=== PATIENT | male | born 1990 | race Caucasian/White ===

== ENCOUNTER 2016-10-29 13:03 | Emergency (ER) | payer SELFPAY ==
[2016-10-29 14:44] LABS: EOS % 4.7 % (0.0-3.0); LYMPH % 21.4 % (24.0-44.0); MEAN CORPUSCULAR HEMOGLOBIN 30.1 pg (27.0-33.0); MEAN CORPUSCULAR VOLUME 88.4 fl (80.0-96.0); MONO % 6.3 % (0.0-5.0); NEUTROPHILS % 65.3 % (36.0-66.0); PLATELET COUNT, AUTOMATED 168 k/mm3 (150-450); RED CELL DISTRIBUTION WIDTH 14.5 % (11.5-14.5); WHITE BLOOD COUNT 7.7 K/mm3 (4.0-10.0)
[2016-10-29 14:45] LABS: BASO % 0.5 % (0.0-1.0); DIFF SLIDE NUMBER 236; EOS # 0.4 K/mm3 (0.0-0.50); LARGE UNSTAINED CELL # 0.1 K/mm3 (0.0-0.4); LARGE UNSTAINED CELL % 1.8 % (0.0-4.0); LYMPH # 1.6 K/mm3 (1.5-6.5); MONO # 0.5 K/mm3 (0.0-0.8)
[2016-10-29 15:09] LABS: ANION GAP 6 MEQ/L (8-16); BLOOD UREA NITROGEN 14 MG/DL (7-18); CALCIUM LEVEL 8.9 MG/DL (8.5-10.1); CARBON DIOXIDE LEVEL 29 MEQ/L (21-32); CHLORIDE LEVEL 105 MEQ/L (98-107); GLOMERULAR FILTRATION RATE > 60.0 (>60); GLUCOSE, FASTING 88 MG/DL (70-105); POTASSIUM SERUM 4.5 MEQ/L (3.5-5.1); SODIUM LEVEL 140 MEQ/L (136-145)
[2016-10-29 15:17] LABS: ERYTHROCYTE SEDIMENTATION RATE 6 mm/hr (0-15)
--- NOTE | 2016-10-29 15:43 | EDDOCDS ---
Nurse's Notes [facility] Name: Stanley Lau Age: 25 yrs Sex: Male : 1990 Arrival Date: 10/29/2016 Time: 13:03 Bed TR1 Private MD: NO PRIMARY PHYSICIAN, . Diagnosis: Edema, unspecified Presentation: 10/29 13:07 Presenting complaint: Patient states: pt c/o bilateral lower leg swelling, intermittent ead over the past two weeks. Adult Sepsis Screening: The patient does not have new or worsening altered mentation. Patient's respiratory rate is less than 22. Systolic blood pressure is greater than 100. Patient has a qSOFA score of 0- Negative Sepsis Screen. Suicide/Homicide risk assessment- the patient denies having any suicidal and/or homicidal ideations and does not present with any other emotional, behavioral or mental health complaints. Status: Patient is not a sales representative electric service or dependent. Transition of care: patient was not received from another setting of care. 13:07 Acuity: MILY Level 3 ead 13:07 Method Of Arrival: Walkin/Carried/Asstd ead Triage Assessment: 13:09 General: Appears in no apparent distress, comfortable, well nourished, well groomed, ead Behavior is appropriate for age, cooperative. Pain: Location: right leg and left leg Pain currently is 6 out of 10 on a pain scale. Neurological: No deficits noted. Respiratory: Airway is patent Respiratory effort is even, unlabored. Derm: Skin is pink, warm & dry. pt reports intermittent swelling to bilateral lower extremeties. Musculoskeletal: Reports pain in right leg and left leg. 13:12 Pt Declines HIV testing. ead Historical: - Allergies: no known allergies; - Home Meds: 1. none - PMHx: none; - PSHx: left wrist; right ankle; - Social history: Smoking status: Patient uses tobacco products, current some day smoker. No barriers to communication noted, The patient speaks fluent Divehi, Speaks appropriately for age. - Family history: Not pertinent. - : The pt / caregiver states he / she is not on anticoagulants. Home medication list is obtained from the patient. - Exposure Risk Screening:: None identified. Screenin:30 Screening information is obtained from the patient. Fall risk: No risks identified. [facility] Assistance ADL's: requires no assistance with activities of daily living. Abuse/DV Screen: The patient / caregiver reports he/she is: not in a situation that causes fear, pain or injury. Nutritional screening: No deficits noted. Advance Directives: Currently, there is no health care proxy. There is no active DNR order. There is no living will. There is no Power of [place]ly Rol[place]. Advance directive information has not previously been placed in an [facility] medical record. Further advance directive information is declined. home support is adequate. Assessment: 14:30 General: Appears in no apparent distress, well nourished, well groomed, Behavior is kpj appropriate for age. Pain: Denies pain. Neurological: Level of Consciousness is awake, alert. Respiratory: Airway is patent Respiratory effort is even, unlabored, Respiratory pattern is regular, symmetrical. Derm: Skin is pink, warm & dry. Musculoskeletal: Circulation, motion, and sensation intact Capillary refill < 3 seconds in bilateral toes Swelling absent. 15:00 General: pt unable to be found from transit when called for xray. pt's phone number on ead record called by charge nurse with no answer. . 15:13 General: pt still has not returned to waiting area, attempted phone contact without kpj success.. 15:39 General: Pt not found in waiting area, pt eloped provider notified.Pt left AMA.. kpj Vital Signs: 13:04 BP 117 / 73; Pulse 96; Resp 16; Temp 98.0(O); Pulse Ox 99% on R/A; Weight 79.38 kg (R); lr2 Height 6 ft. 1 in. (185.42 cm) (R); Pain 6/10; 13:04 Body Mass Index 23.09 (79.38 kg, 185.42 cm) lr2 Vitals: 13:04 Log In Time: October 29, 2016 at 13:03. lr2 ED Course: 13:04 Patient visited by Venus Valdez. lr2 13:04 Patient moved to Waiting lr2 13:06 NO PRIMARY PHYSICIAN, . is Private Physician. lr2 13:06 Patient moved to Pre RCE lr2 13:08 Triage Initiated ead 13:16 Patient moved to Triage 2 dsf 14:09 Herberth Lopez PA-C is PHCP. cc10 14:09 John Jimenez MD is Attending Physician. cc10 14:09 Patient visited by Herberth Lopez PA-C. cc10 14:09 Patient visited by Herberth Lopez PA-C. cc10 14:30 No apparent distress. kpj 14:30 The patient / caregiver is instructed regarding the plan of care and ED course. Patient j has correct armband on for positive identification. 14:30 No IV's were initiated during this patient's visit. No procedures done that require [facility] assistance. 14:31 Patient moved to TR1 ar3 14:31 CRP Sent. ar3 14:31 ESR Sent. ar3 14:31 BMP Sent. ar3 14:31 CBC with Diff Sent. ar3 14:39 Patient name changed from Stanley\S\\S\Lau\S\ to Stanley\S\Reza\S\Lau. EDMS 14:41 ON LICENSE OF [facility] Payment Agreement was scanned into [employer] and attached to record. lg Order Results: Lab Order: CBC with Diff; SPEC'M 10/29/16 14:31 Test: WHITE BLOOD COUNT; Value: 7.7; Range: 4.0-10.0; Units: K/mm3; Status: F Test: RED BLOOD COUNT; Value: 4.96; Range: 4.30-6.10; Units: M/mm3; Status: F Test: HEMOGLOBIN; Value: 14.9; Range: 14.0-18.0; Units: g/dl; Status: F Test: HEMATOCRIT; Value: 43.8; Range: 42.0-52.0; Units: %; Status: F Test: MEAN CORPUSCULAR VOLUME; Value: 88.4; Range: 80.0-96.0; Units: fl; Status: F Test: MEAN CORPUSCULAR HEMOGLOBIN; Value: 30.1; Range: 27.0-33.0; Units: pg; Status: F Test: MEAN CORPUSCULAR HGB CONC; Value: 34.0; Range: 32.0-36.5; Units: g/dl; Status: F Test: RED CELL DISTRIBUTION WIDTH; Value: 14.5; Range: 11.5-14.5; Units: %; Status: F Test: PLATELET COUNT, AUTOMATED; Value: 168; Range: 150-450; Units: k/mm3; Status: F Test: NEUTROPHILS %; Value: 65.3; Range: 36.0-66.0; Units: %; Status: F Test: LYMPH %; Value: 21.4; Range: 24.0-44.0; Abnormal: Below low normal; Units: %; Status: F Test: MONO %; Value: 6.3; Range: 0.0-5.0; Abnormal: Above high normal; Units: %; Status: F Test: EOS %; Value: 4.7; Range: 0.0-3.0; Abnormal: Above high normal; Units: %; Status: F Test: BASO %; Value: 0.5; Range: 0.0-1.0; Units: %; Status: F Test: LARGE UNSTAINED CELL %; Value: 1.8; Range: 0.0-4.0; Units: %; Status: F Test: NEUTROPHILS #; Value: 5.0; Range: 1.8-7.7; Units: K/mm3; Status: F Test: LYMPH #; Value: 1.6; Range: 1.5-6.5; Units: K/mm3; Status: F Test: MONO #; Value: 0.5; Range: 0.0-0.8; Units: K/mm3; Status: F Test: EOS #; Value: 0.4; Range: 0.0-0.50; Units: K/mm3; Status: F Test: BASO #; Value: 0.0; Range: 0.0-0.2; Units: K/mm3; Status: F Test: LARGE UNSTAINED CELL #; Value: 0.1; Range: 0.0-0.4; Units: K/mm3; Status: F Lab Order: [facility]; SPEC'M 10/29/16 14:31 Test: GLUCOSE, FASTING; Value: 88; Range: 70-105; Units: MG/DL; Status: F Test: BLOOD UREA NITROGEN; Value: 14; Range: 7-18; Units: MG/DL; Status: F Test: CREATININE FOR GFR; Value: 0.90; Range: 0.70-1.30; Units: MG/DL; Status: F Test: GLOMERULAR FILTRATION RATE; Value: > 60.0; Range: >60; Status: F Test: SODIUM LEVEL; Value: 140; Range: 136-145; Units: MEQ/L; Status: F Test: POTASSIUM SERUM; Value: 4.5; Range: 3.5-5.1; Units: MEQ/L; Status: F Test: CHLORIDE LEVEL; Value: 105; Range: 98-107; Units: MEQ/L; Status: F Test: CARBON DIOXIDE LEVEL; Value: 29; Range: 21-32; Units: MEQ/L; Status: F Test: ANION GAP; Value: 6; Range: 8-16; Abnormal: Below low normal; Units: MEQ/L; Status: F Test: CALCIUM LEVEL; Value: 8.9; Range: 8.5-10.1; Units: MG/DL; Status: F Test Note: ; Units are mL/min/1.73 m2 Chronic Kidney Disease Staging per NKF: Stage I & II GFR >=60 Normal to Mildly Decreased Stage III GFR 30-59 Moderately Decreased Stage IV GFR 15-29 Severely Decreased Stage V GFR <15 Very Little GFR Left ESRD GFR <15 on USED [employer] ATTENDANT Lab Order: ESR; SPEC'M 10/29/16 14:31 Test: ERYTHROCYTE SEDIMENTATION RATE; Value: 6; Range: 0-15; Units: mm/hr; Status: F Lab Order: CRP; SPEC'M 10/29/16 14:31 Test: C REACTIVE PROTEIN QUANTITATIV; Value: < 0.30; Range: 0.00-0.30; Units: MG/DL; Status: F Outcome: 15:33 Patient left against medical advice. cc10 15:41 Discharge Assessment: Patient awake, alert and oriented x 3. No cognitive and/or [facility] functional deficits noted. Patient verbalized understanding of disposition instructions. patient administered narcotics - no. The following High Risk Discharge criteria are identified: Yes, Pt left AMA. The patient is leaving AMA: Left before signing form, Notification of AMA status is made to the charge nurse, the adoption social worker, the ED attending physician. 15:42 Patient left the ED. [facility] Signatures: Dispatcher [employer] Lashell Bowen RN RN Rachelle Moore, Reg Reg lg Vi Alvarado, HVAC MECHANIC HVAC MECHANIC ar3 Cindy Mckenzie RN RN dsf Dunaway, Emily, RN RN Herberth Mart, PA-C PA-C cc10 Venus Valdez lr2 Corrections: (The following items were deleted from the chart) 15:05 15:04 General: pt unable to be found when called for xray. pt's cell phone number on dsf record called by charge nurse with no answer.. dsf MTDD
--- NOTE | 2016-10-29 15:43 | EDDOCDS ---
Physician Documentation [facility] Name: Stanley Lau Age: 25 yrs Sex: Male : 1990 Arrival Date: 10/29/2016 Time: 13:03 Bed TR1 Private MD: NO PRIMARY PHYSICIAN, . Disposition: 10/29/16 15:33 Patient has left against medical advice. Impression: Edema, unspecified. - Patients states they are going to Home/Self Care. - Condition is Unknown. - Discharge Instructions: Edema. Medication Reconciliation form. Follow up: Private Physician; When: Call to arrange an appointment; Reason: Wound/Symptom Recheck, Recheck today's complaints, Worsening of conditions, Continuance of care. - Problem is an ongoing problem. - Symptoms are resolved. Historical: - Allergies: no known allergies; - Home Meds: 1. none - PMHx: none; - PSHx: left wrist; right ankle; - Social history: Smoking status: Patient uses tobacco products, current some day smoker. No barriers to communication noted, The patient speaks fluent Romanian, Speaks appropriately for age. - Family history: Not pertinent. - : The pt / caregiver states he / she is not on anticoagulants. Home medication list is obtained from the patient. - Exposure Risk Screening:: None identified. Vital Signs: 10/29 13:04 BP 117 / 73; Pulse 96; Resp 16; Temp 98.0(O); Pulse Ox 99% on R/A; Weight 79.38 kg / lr2 175 lbs (R); Height 6 ft. 1 in. (185.42 cm) (R); Pain 6/10; 13:04 Body Mass Index 23.09 (79.38 kg, 185.42 cm) lr2 MDM: 14:22 Financial registration complete. lg 14:26 CBC with Diff Ordered. EDMS 14:26 BMP Ordered. EDMS 14:27 ESR Ordered. EDMS 14:27 CRP Ordered. EDMS 14:27 Foot, Complete Ordered. EDMS 14:41 [facility] Payment Agreement was scanned into [employer] and attached to record. lg 15:12 CBC with Diff Reviewed. cc10 15:12 BMP Reviewed. cc10 15:12 CRP Reviewed. cc10 15:34 CBC with Diff Reviewed. cc10 15:34 ESR Reviewed. cc10 Signatures: Dispatcher [employer] EDMS Jobson, Lashell, RN RN Rachelle Mcginnis, Reg Reg lg Ene GarciaRN RN Herberth Mart, LUIS MIGUEL PAGrayson cc10 The chart was reviewed and I authenticate all verbal orders and agree with the evaluation and treatment provided.Attachments: 14:41 [facility] Payment Agreement lg MTDD
--- NOTE | 2016-10-31 16:43 | EDDOCDS ---
Physician Documentation [facility] Name: Stanley Lau Age: 25 yrs Sex: Male : 1990 Arrival Date: 10/29/2016 Time: 13:03 Bed TR1 Private MD: NO PRIMARY PHYSICIAN, . Disposition: 10/29/16 15:33 Patient has left against medical advice. Impression: Edema, unspecified. - Patients states they are going to Home/Self Care. - Condition is Unknown. - Discharge Instructions: Edema. Medication Reconciliation form. Follow up: Private Physician; When: Call to arrange an appointment; Reason: Wound/Symptom Recheck, Recheck today's complaints, Worsening of conditions, Continuance of care. - Problem is an ongoing problem. - Symptoms are resolved. Historical: - Allergies: no known allergies; - Home Meds: 1. none - PMHx: none; - PSHx: left wrist; right ankle; - Social history: Smoking status: Patient uses tobacco products, current some day smoker. No barriers to communication noted, The patient speaks fluent Romanian, Speaks appropriately for age. - Family history: Not pertinent. - : The pt / caregiver states he / she is not on anticoagulants. Home medication list is obtained from the patient. - Exposure Risk Screening:: None identified. Vital Signs: 10/29 13:04 BP 117 / 73; Pulse 96; Resp 16; Temp 98.0(O); Pulse Ox 99% on R/A; Weight 79.38 kg / lr2 175 lbs (R); Height 6 ft. 1 in. (185.42 cm) (R); Pain 6/10; 13:04 Body Mass Index 23.09 (79.38 kg, 185.42 cm) lr2 MDM: 14:22 Financial registration complete. lg 14:26 CBC with Diff Ordered. EDMS 14:26 BMP Ordered. EDMS 14:27 ESR Ordered. EDMS 14:27 CRP Ordered. EDMS 14:27 Foot, Complete Ordered. EDMS 14:41 [facility] Payment Agreement was scanned into [employer] and attached to record. lg 15:12 CBC with Diff Reviewed. cc10 15:12 BMP Reviewed. cc10 15:12 CRP Reviewed. cc10 15:34 CBC with Diff Reviewed. cc10 15:34 ESR Reviewed. cc10 Signatures: Dispatcher [employer] EDMS Jobson, Lashell, RN RN Rachelle Mcginnis, Reg Reg lg Ene GarciaRN RN Herberth Mart, LUIS MIGUEL PAGrayson cc10 The chart was reviewed and I authenticate all verbal orders and agree with the evaluation and treatment provided.Attachments: 14:41 [facility] Payment Agreement lg Chart Complete MTDD
--- NOTE | 2016-10-31 16:44 | EDDOCDS ---
Nurse's Notes [facility] Name: Stanley Lau Age: 25 yrs Sex: Male : 1990 Arrival Date: 10/29/2016 Time: 13:03 Bed TR1 Private MD: NO PRIMARY PHYSICIAN, . Diagnosis: Edema, unspecified Presentation: 10/29 13:07 Presenting complaint: Patient states: pt c/o bilateral lower leg swelling, intermittent ead over the past two weeks. Adult Sepsis Screening: The patient does not have new or worsening altered mentation. Patient's respiratory rate is less than 22. Systolic blood pressure is greater than 100. Patient has a qSOFA score of 0- Negative Sepsis Screen. Suicide/Homicide risk assessment- the patient denies having any suicidal and/or homicidal ideations and does not present with any other emotional, behavioral or mental health complaints. Status: Patient is not a janitorial services supervisor or dependent. Transition of care: patient was not received from another setting of care. 13:07 Acuity: MILY Level 3 ead 13:07 Method Of Arrival: Walkin/Carried/Asstd ead Triage Assessment: 13:09 General: Appears in no apparent distress, comfortable, well nourished, well groomed, ead Behavior is appropriate for age, cooperative. Pain: Location: right leg and left leg Pain currently is 6 out of 10 on a pain scale. Neurological: No deficits noted. Respiratory: Airway is patent Respiratory effort is even, unlabored. Derm: Skin is pink, warm & dry. pt reports intermittent swelling to bilateral lower extremeties. Musculoskeletal: Reports pain in right leg and left leg. 13:12 Pt Declines HIV testing. ead Historical: - Allergies: no known allergies; - Home Meds: 1. none - PMHx: none; - PSHx: left wrist; right ankle; - Social history: Smoking status: Patient uses tobacco products, current some day smoker. No barriers to communication noted, The patient speaks fluent Wolof, Speaks appropriately for age. - Family history: Not pertinent. - : The pt / caregiver states he / she is not on anticoagulants. Home medication list is obtained from the patient. - Exposure Risk Screening:: None identified. Screenin:30 Screening information is obtained from the patient. Fall risk: No risks identified. [facility] Assistance ADL's: requires no assistance with activities of daily living. Abuse/DV Screen: The patient / caregiver reports he/she is: not in a situation that causes fear, pain or injury. Nutritional screening: No deficits noted. Advance Directives: Currently, there is no health care proxy. There is no active DNR order. There is no living will. There is no Power of Product Grader. Advance directive information has not previously been placed in an [facility] medical record. Further advance directive information is declined. home support is adequate. Assessment: 14:30 General: Appears in no apparent distress, well nourished, well groomed, Behavior is kpj appropriate for age. Pain: Denies pain. Neurological: Level of Consciousness is awake, alert. Respiratory: Airway is patent Respiratory effort is even, unlabored, Respiratory pattern is regular, symmetrical. Derm: Skin is pink, warm & dry. Musculoskeletal: Circulation, motion, and sensation intact Capillary refill < 3 seconds in bilateral toes Swelling absent. 15:00 General: pt unable to be found from transit when called for xray. pt's phone number on ead record called by charge nurse with no answer. . 15:13 General: pt still has not returned to waiting area, attempted phone contact without [facility] success.. 15:39 General: Pt not found in waiting area, pt eloped provider notified.Pt left AMA.. [facility] Social Work Consult: 15:43 LWBS/AMA AMA: Patient is refusing further stabilizing treatment at [facility], although rb offered treatment regardless of method of payment or ability to pay. Patient is aware that this action is being undertaken against the advice of the medical staff at [facility]. Pt. has capacity to understand the potential consequences of this choice. pt did not notify ED staff. Patient / Guardian did not sign a Refusal of Services form. Pt left before being seen by PSA. Vital Signs: 13:04 BP 117 / 73; Pulse 96; Resp 16; Temp 98.0(O); Pulse Ox 99% on R/A; Weight 79.38 kg (R); lr2 Height 6 ft. 1 in. (185.42 cm) (R); Pain 6/10; 13:04 Body Mass Index 23.09 (79.38 kg, 185.42 cm) lr2 Vitals: 13:04 Log In Time: October 29, 2016 at 13:03. lr2 ED Course: 13:04 Patient visited by Venus Valdez. lr2 13:04 Patient moved to Waiting lr2 13:06 NO PRIMARY PHYSICIAN, . is Private Physician. lr2 13:06 Patient moved to Pre RCE lr2 13:08 Triage Initiated ead 13:16 Patient moved to Triage 2 dsf 14:09 Herberth Lopez PA-C is PHCP. cc10 14:09 John Jimenez MD is Attending Physician. cc10 14:09 Patient visited by Herberth Lopez PA-C. cc10 14:09 Patient visited by Herberth Lopez PA-C. cc10 14:30 No apparent distress. kpj 14:30 The patient / caregiver is instructed regarding the plan of care and ED course. Patient kpj has correct armband on for positive identification. 14:30 No IV's were initiated during this patient's visit. No procedures done that require kpj assistance. 14:31 Patient moved to TR1 ar3 14:31 CRP Sent. ar3 14:31 ESR Sent. ar3 14:31 BMP Sent. ar3 14:31 CBC with Diff Sent. ar3 14:39 Patient name changed from Stanley\S\\S\Lau\S\ to Stanley\S\Reza\S\Lau. EDMS 14:41 [facility] Payment Agreement was scanned into [employer] and attached to record. lg Order Results: Lab Order: CBC with Diff; SPEC'M 10/29/16 14:31 Test: WHITE BLOOD COUNT; Value: 7.7; Range: 4.0-10.0; Units: K/mm3; Status: F Test: RED BLOOD COUNT; Value: 4.96; Range: 4.30-6.10; Units: M/mm3; Status: F Test: HEMOGLOBIN; Value: 14.9; Range: 14.0-18.0; Units: g/dl; Status: F Test: HEMATOCRIT; Value: 43.8; Range: 42.0-52.0; Units: %; Status: F Test: MEAN CORPUSCULAR VOLUME; Value: 88.4; Range: 80.0-96.0; Units: fl; Status: F Test: MEAN CORPUSCULAR HEMOGLOBIN; Value: 30.1; Range: 27.0-33.0; Units: pg; Status: F Test: MEAN CORPUSCULAR HGB CONC; Value: 34.0; Range: 32.0-36.5; Units: g/dl; Status: F Test: RED CELL DISTRIBUTION WIDTH; Value: 14.5; Range: 11.5-14.5; Units: %; Status: F Test: PLATELET COUNT, AUTOMATED; Value: 168; Range: 150-450; Units: k/mm3; Status: F Test: NEUTROPHILS %; Value: 65.3; Range: 36.0-66.0; Units: %; Status: F Test: LYMPH %; Value: 21.4; Range: 24.0-44.0; Abnormal: Below low normal; Units: %; Status: F Test: MONO %; Value: 6.3; Range: 0.0-5.0; Abnormal: Above high normal; Units: %; Status: F Test: EOS %; Value: 4.7; Range: 0.0-3.0; Abnormal: Above high normal; Units: %; Status: F Test: BASO %; Value: 0.5; Range: 0.0-1.0; Units: %; Status: F Test: LARGE UNSTAINED CELL %; Value: 1.8; Range: 0.0-4.0; Units: %; Status: F Test: NEUTROPHILS #; Value: 5.0; Range: 1.8-7.7; Units: K/mm3; Status: F Test: LYMPH #; Value: 1.6; Range: 1.5-6.5; Units: K/mm3; Status: F Test: MONO #; Value: 0.5; Range: 0.0-0.8; Units: K/mm3; Status: F Test: EOS #; Value: 0.4; Range: 0.0-0.50; Units: K/mm3; Status: F Test: BASO #; Value: 0.0; Range: 0.0-0.2; Units: K/mm3; Status: F Test: LARGE UNSTAINED CELL #; Value: 0.1; Range: 0.0-0.4; Units: K/mm3; Status: F Lab Order: [facility]; SPEC'M 10/29/16 14:31 Test: GLUCOSE, FASTING; Value: 88; Range: 70-105; Units: MG/DL; Status: F Test: BLOOD UREA NITROGEN; Value: 14; Range: 7-18; Units: MG/DL; Status: F Test: CREATININE FOR GFR; Value: 0.90; Range: 0.70-1.30; Units: MG/DL; Status: F Test: GLOMERULAR FILTRATION RATE; Value: > 60.0; Range: >60; Status: F Test: SODIUM LEVEL; Value: 140; Range: 136-145; Units: MEQ/L; Status: F Test: POTASSIUM SERUM; Value: 4.5; Range: 3.5-5.1; Units: MEQ/L; Status: F Test: CHLORIDE LEVEL; Value: 105; Range: 98-107; Units: MEQ/L; Status: F Test: CARBON DIOXIDE LEVEL; Value: 29; Range: 21-32; Units: MEQ/L; Status: F Test: ANION GAP; Value: 6; Range: 8-16; Abnormal: Below low normal; Units: MEQ/L; Status: F Test: CALCIUM LEVEL; Value: 8.9; Range: 8.5-10.1; Units: MG/DL; Status: F Test Note: ; Units are mL/min/1.73 m2 Chronic Kidney Disease Staging per NKF: Stage I & II GFR >=60 Normal to Mildly Decreased Stage III GFR 30-59 Moderately Decreased Stage IV GFR 15-29 Severely Decreased Stage V GFR <15 Very Little GFR Left ESRD GFR <15 on [employer] ATT[employer]ER Lab Order: ESR; SPEC'M 10/29/16 14:31 Test: ERYTHROCYTE SEDIMENTATION RATE; Value: 6; Range: 0-15; Units: mm/hr; Status: F Lab Order: CRP; SPEC'M 10/29/16 14:31 Test: C REACTIVE PROTEIN QUANTITATIV; Value: < 0.30; Range: 0.00-0.30; Units: MG/DL; Status: F Outcome: 15:33 Patient left against medical advice. cc10 15:41 Discharge Assessment: Patient awake, alert and oriented x 3. No cognitive and/or kpj functional deficits noted. Patient verbalized understanding of disposition instructions. patient administered narcotics - no. The following High Risk Discharge criteria are identified: Yes, Pt left AMA. The patient is leaving AMA: Left before signing form, Notification of AMA status is made to the charge nurse, the social economist, the ED attending physician. 15:42 Patient left the ED. [facility] Signatures: Dispatcher [employer] Lashell Bowen, RN RN [facility] Yaya, Kendra, PSA PSA rb Vinicio, Rachelle, Reg Reg lg Christiano, Vi, OPTO MECHANICAL TECHNICIAN OPTO MECHANICAL TECHNICIAN ar3 Cindy Mckenzie RN RN dsf Dunaway, Emily, RN RN Herberth Mart, PA-C PA-C cc10 Venus Valdez2 Corrections: (The following items were deleted from the chart) 15:05 15:04 General: pt unable to be found when called for xray. pt's cell phone number on dsf record called by charge nurse with no answer.. dsf Chart Complete MTDD
--- NOTE | 2016-10-31 16:44 | EDDOCDS ---
Physician Documentation [facility] Name: Stanley Lau Age: 25 yrs Sex: Male : 1990 Arrival Date: 10/29/2016 Time: 13:03 Bed TR1 Private MD: NO PRIMARY PHYSICIAN, . Disposition: 10/29/16 15:33 Patient has left against medical advice. Impression: Edema, unspecified. - Patients states they are going to Home/Self Care. - Condition is Unknown. - Discharge Instructions: Edema. Medication Reconciliation form. Follow up: Private Physician; When: Call to arrange an appointment; Reason: Wound/Symptom Recheck, Recheck today's complaints, Worsening of conditions, Continuance of care. - Problem is an ongoing problem. - Symptoms are resolved. Historical: - Allergies: no known allergies; - Home Meds: 1. none - PMHx: none; - PSHx: left wrist; right ankle; - Social history: Smoking status: Patient uses tobacco products, current some day smoker. No barriers to communication noted, The patient speaks fluent Kiswahili, Speaks appropriately for age. - Family history: Not pertinent. - : The pt / caregiver states he / she is not on anticoagulants. Home medication list is obtained from the patient. - Exposure Risk Screening:: None identified. Vital Signs: 10/29 13:04 BP 117 / 73; Pulse 96; Resp 16; Temp 98.0(O); Pulse Ox 99% on R/A; Weight 79.38 kg / lr2 175 lbs (R); Height 6 ft. 1 in. (185.42 cm) (R); Pain 6/10; 13:04 Body Mass Index 23.09 (79.38 kg, 185.42 cm) lr2 MDM: 14:22 Financial registration complete. lg 14:26 CBC with Diff Ordered. EDMS 14:26 BMP Ordered. EDMS 14:27 ESR Ordered. EDMS 14:27 CRP Ordered. EDMS 14:27 Foot, Complete Ordered. EDMS 14:41 [facility] Payment Agreement was scanned into [employer] and attached to record. lg 15:12 CBC with Diff Reviewed. cc10 15:12 BMP Reviewed. cc10 15:12 CRP Reviewed. cc10 15:34 CBC with Diff Reviewed. cc10 15:34 ESR Reviewed. cc10 Signatures: Dispatcher [employer] EDMS Jobson, Lashell, RN RN Rachelle Mcginnis, Reg Reg lg Ene GarciaRN RN [place], LUIS MIGUEL PAGrayson cc10 The chart was reviewed and I authenticate all verbal orders and agree with the evaluation and treatment provided.Attachments: 14:41 [facility] [place] Payment Agreement lg Chart Complete MTDD
== END 2016-10-29 15:43 | disposition left against medical advice (07) ==
LOC: M ED 13:03
DX: R60.0 Localized edema (principal); F17.210 Nicotine dependence, cigarettes, uncomplicated